=== PATIENT | male | born 1985 | race Caucasian/White ===

== ENCOUNTER → 2018-10-21 15:54 | Outpatient (CLI) | payer BC, SELFPAY ==
--- NOTE | 2018-10-21 16:52 | DI.MRI.S_ITS ---
PROCEDURE: MR HEAD/BRAIN WO/W CON INDICATIONS: NEAR SYNCOPE NAUSEA AND VOMITING TECHNIQUE: Noncontrast axial T1 spin echo, axial T2 fast spin echo, sagittal and axial FLAIR, coronal T2 fast spin echo, axial gradient echo, axial diffusion and ADC through the brain. After the administration of contrast, axial and coronal 3D VIBE or T1 spin echo with fat saturation through the brain. COMPARISON: None. FINDINGS: Image quality: Excellent. CSF Spaces: Basal cisterns are patent. No extra-axial fluid collections. Ventricles are normal in size and shape. Brain: No midline shift. No intracranial bleeds or masses. No abnormal intracranial enhancement. The brainstem appears normal. Diffusion-weighted images demonstrate no acute ischemic insults. No chronic ischemic insults. Normal intravascular flow voids are present. Skull and face: Calvarial marrow is normal in signal. Orbits appear normal. Sinuses: Sinuses and mastoids appear clear. IMPRESSION: No imaging explanation is found for this patient's presenting symptoms. No masses or abnormal enhancement can be seen. No hydrocephalus. No intracranial hemorrhage. Dictated by: Corbin Polanco M.D. on 10/21/2018 at 16:12 Approved by: Corbin Polanco M.D. on 10/21/2018 at 16:12
== END ==
PROVIDERS: PCP Nurse Practitioner Family; Visit Provider Nurse Practitioner Family
DX: R55 Syncope and collapse (principal); R11.2 Nausea with vomiting, unspecified
CPT/HCPCS: 70553; A9579

== ENCOUNTER 2019-02-22 21:43 | Emergency (ER) | payer BC, SELFPAY ==
[2019-02-22 21:50] VITALS: BP 159/116; PULSE 96; RESP 18; TEMP 36.4; O2SAT 100; BMI 35.4
--- NOTE | 2019-02-22 22:03 | DI.RAD.S_ITS ---
PROCEDURE: XR SHOULDER RT MIN 2V INDICATIONS: Fell on R shouler doing a flip TECHNIQUE: 2 views of the shoulder were acquired. COMPARISON: None. FINDINGS: Bones: No fractures or dislocations. No suspicious bony lesions. Visualized ribs appear intact. Soft tissues: No suspicious soft tissue calcifications. IMPRESSION: No acute shoulder fracture or dislocation. Dictated by: Antonino Penaloza M.D. on 02/22/2019 at 22:17 Approved by: Antonino Penaloza M.D. on 02/22/2019 at 22:18
--- NOTE | 2019-02-22 23:03 | ED.UPPEXIN ---
HPI - Extremity Injury (Upper) General Chief Complaint: Extremity Injury, Upper Stated Complaint: right arm injury Time Seen by Provider: 02/22/19 21:56 Source: patient Mode of arrival: ambulatory Limitations: no limitations History of Present Illness HPI narrative: Patient comes to the emergency department after injuring his shoulder this evening while playing with his stepson. Patient states he fell to the ground and rolled, and felt a sharp pop in his right shoulder. He states he is having pain over the top of his shoulder, and indicates that it hurts most over the AC joint area. Patient states that as long as he holds still it is not too bad, but that certain movements create a sharp pain in that area. Patient denies any other complaints at this time. He denies any spinal or rib pain. No chest pain or shortness of breath. No abdominal pain. Patient did not hit his head or lose consciousness. Patient rates his pain an 8/10. Related Data Allergies Allergy/AdvReac Type Severity Reaction Status Date / Time No Known Drug Allergies Allergy Verified 02/22/19 23:34 Review of Systems Constitutional Denies chills, Denies fever(s), Denies lethargy and Denies weakness Eyes Denies change in vision, Denies eye discharge, Denies irritation and Denies loss of vision ENT Ears, Nose, Mouth, and Throat: Denies change in voice, Denies neck pain and Denies sore throat Cardiovascular Denies chest pain, Denies irregular heart rhythm, Denies lightheadedness, Denies palpitations, Denies dyspnea, Denies dyspnea on exertion and Denies orthopnea Respiratory Denies cough, Denies dyspnea, Denies dyspnea on exertion and Denies wheezing Gastrointestinal Gastrointestinal: Denies abdominal pain, Denies change in bowel habits, Denies diarrhea, Denies nausea and Denies vomiting Genitourinary Denies hematuria, Denies flank pain, Denies urinary incontinence and Denies urinary urgency Musculoskeletal Denies neck pain Comments: Right shoulder pain Integumentary/Breasts Denies pruritus, Denies erythema, Denies rash and Denies wounds Neurologic Denies confusion, Denies loss of vision and Denies weakness Psychiatric Denies anxiety, Denies confusion, Denies depression, Denies homicidal ideation and Denies suicidal ideation Endocrine Denies palpitations Hematologic/Lymphatic Denies easy bruising Allergic/Immunologic Denies wheezing ON LICENSE OF [facility] Medical History Healthy adult (Acute) Surgical History No pertinent past surgical history (Acute) Social History Smoking Status: Current every day smoker Social History Smoking Status: Current every day smoker Exam Initial Vital Signs Initial Vital Signs: Vital Signs Temperature 97.6 F 02/22/19 21:50 Pulse Rate 96 H 02/22/19 21:50 Respiratory Rate 18 02/22/19 21:50 Blood Pressure 159/116 H 02/22/19 21:50 Pulse Oximetry 100 02/22/19 21:50 Const General: cooperative and well developed Nutritional Appearance: well nourished Orientation: alert, awake, oriented x3 and not confused HENAK Head: normocephalic and atraumatic Ears: external ears normal Nose: external nose normal and No nasal discharge Face and sinus: face symmetric and No dry mucous membranes Mouth: oral mucosae normal and moist mucous membranes Teeth and gingiva: dentition normal Eyes General: appearance normal, both eyes and all related structures Eyelids: eyelids normal Conjunctivae: conjunctivae normal Sclera: sclerae normal Pupils: PERRL EOM: EOM intact bilaterally Neck Neck: normal visual inspection, trachea midline, No lymphadenopathy, No midline deformity and No JVD Lymphatic: No lymphedema Chest Chest: normal inspection of the chest Resp Effort & Inspection: normal respiratory effort, able to speak in complete sentences, no respiratory distress and no use of accessory muscles Auscultation: clear to auscultation bilaterally, no rales, no rhonchi and no wheezes Cardio Rate: regular rate Rhythm: regular rhythm Heart Sounds: no click, no gallops, no murmurs and no rubs Pulses: normal peripheral pulses GI Inspection: obesity Back/Spine/Pelvis Back: No CVA tenderness Cervical Spine: cervical ROM normal and No pain with cervical ROM Thoracic/Lumbar Spine: thoracic and lumbar spine normal to inspection Other: No tenderness or step-off at any level of the spine. Skin General: no rashes or lesions noted, No jaundice and No petechiae Neuro General: alert, oriented x3, gait normal and no focal motor deficits Speech: speech normal Extrem General: full ROM, no clubbing, cyanosis or edema, no pedal edema and no calf tenderness Other: Patient has tenderness and mild prominence of his right AC joint. There is no point tenderness anywhere else about the patient's shoulder joint. The patient is unable to move his shoulder on exam, he states, secondary to pain in the AC joint area. Patient is able to move at the elbow and wrist and fingers in the same extremity. There is no deformity anywhere else and no edema. Psych Appearance: well kempt Mental Status: mental status grossly normal Attitude: cooperative Thought Content: normal and suicidality Judgment: judgment good Course Course Narrative: Patient was worked up with a right shoulder x-ray series, which showed no fractures. There is minimal AC disruption on the x-ray. I felt the patient clinically most likely had a very mild grade 1 tear of his AC ligament. We have discussed timeline for healing, as well as home management of the symptoms and work restrictions. We have discussed the usual indications for return. Patient has been given Toradol and a dose of Vicodin in the emergency department as well as a sling. He has also been given a Vicodin prepack. We have discussed the need for follow-up his primary doctor in 2-3 weeks if symptoms have not begun to improve. Orders Ordered: ED Orders 02/22/19 22:03 XR shoulder RT min 2V Stat Discontinued Medications Hydrocodone Bitart/Acetaminophen ([place] 10/325) 1 tab PO NOW ONE Stop: 02/22/19 22:47 Last Admin: 02/22/19 23:29 Dose: Not Given Hydrocodone Bitart/Acetaminophen (Vicodin Prepack) 1 bottle MISC SEEINSTR ONE Stop: 02/22/19 22:47 Last Admin: 02/22/19 23:27 Dose: 1 bottle Hydrocodone Bitart/Acetaminophen ([place] 5/325) 1 tab PO NOW ONE Stop: 02/22/19 23:30 Last Admin: 02/22/19 23:31 Dose: 1 tab Ketorolac Tromethamine (Toradol) 60 mg IM NOW ONE Stop: 02/22/19 22:47 Last Admin: 02/22/19 23:28 Dose: Not Given Vital Signs - 8 hr 02/22/19 21:50 02/22/19 23:04 Temperature 97.6 F Pulse Rate 96 H 93 H Respiratory Rate 18 18 Blood Pressure 159/116 H Blood Pressure [Left Arm] 160/104 H Pulse Oximetry 100 97 MDM - Extremity Injury (Upper) Medical Records Attestation: I reviewed the patient's medical records. Imaging Data Right shoulder x-ray: Attestation: I personally reviewed and interpreted this imaging study as follows: (Negative) Discharge Plan Departure Patient Disposition: Home Clinical Impression: Acromioclavicular separation, type 1 Qualifiers: Encounter type: initial encounter Laterality: right Qualified Code(s): S43.101A - Unspecified dislocation of right acromioclavicular joint, initial encounter Shoulder sprain Qualifiers: Encounter type: initial encounter Shoulder sprain type: other part of shoulder region Laterality: right Qualified Code(s): S43.491A - Other sprain of right shoulder joint, initial encounter Discharge Date/Time: 02/23/19 00:01 Instructions: DI for Shoulder Sprain, DI for AC Joint Separation Activity Restrictions/Additional Instructions: Your x-ray does not show any broken bones. Your pain and swelling over the AC joint are consistent with a small tear of the ligament that holds the end of your collarbone and the end of your shoulder blade together. This will generally heal well on its own, and you should be able to get back to your usual activities within the next few weeks. If you continue to have trouble without any sign of improvement after that period of time, you should talk to your primary doctor about getting an MRI done. You may use the sling as long as you need to for comfort. Referrals: Janeth Wang ARNP [Primary Care Provider] - Stand Alone Forms: Work Release Note
[2019-02-22 23:04] VITALS: BP 160/104; PULSE 93; RESP 18; O2SAT 97
--- NOTE | 2019-02-22 23:09 | ED_ITS ---
HPI - Extremity Injury (Upper) General Chief Complaint: Extremity Injury, Upper Stated Complaint: right arm injury Time Seen by Provider: 02/22/19 21:56 Source: patient Mode of arrival: ambulatory Limitations: no limitations History of Present Illness HPI narrative: Patient comes to the emergency department after injuring his shoulder this evening while playing with his stepson. Patient states he fell to the ground and rolled, and felt a sharp pop in his right shoulder. He states he is having pain over the top of his shoulder, and indicates that it hurts most over the AC joint area. Patient states that as long as he holds still it is not too bad, but that certain movements create a sharp pain in that area. Patient denies any other complaints at this time. He denies any spinal or rib pain. No chest pain or shortness of breath. No abdominal pain. Patient did not hit his head or lose consciousness. Patient rates his pain an 8/10. Related Data Allergies Allergy/AdvReac Type Severity Reaction Status Date / Time No Known Drug Allergies Allergy Verified 02/22/19 23:34 Review of Systems Constitutional Denies chills, Denies fever(s), Denies lethargy and Denies weakness Eyes Denies change in vision, Denies eye discharge, Denies irritation and Denies loss of vision ENT Ears, Nose, Mouth, and Throat: Denies change in voice, Denies neck pain and Den ies sore throat Cardiovascular Denies chest pain, Denies irregular heart rhythm, Denies lightheadedness, Denies palpitations, Denies dyspnea, Denies dyspnea on exertion and Denies orthopnea Respiratory Denies cough, Denies dyspnea, Denies dyspnea on exertion and Denies wheezing Gastrointestinal Gastrointestinal: Denies abdominal pain, Denies change in bowel habits, Denies diarrhea, Denies nausea and Denies vomiting Genitourinary Denies hematuria, Denies flank pain, Denies urinary incontinence and Denies urinary urgency Musculoskeletal Denies neck pain Comments: Right shoulder pain Integumentary/Breasts Denies pruritus, Denies erythema, Denies rash and Denies wounds Neurologic Denies confusion, Denies loss of vision and Denies weakness Psychiatric Denies anxiety, Denies confusion, Denies depression, Denies homicidal ideation and Denies suicidal ideation Endocrine Denies palpitations Hematologic/Lymphatic Denies easy bruising Allergic/Immunologic Denies wheezing [facility] Medical History Healthy adult (Acute) Surgical History No pertinent past surgical history (Acute) Social History Smoking Status: Current every day smoker Social History Smoking Status: Current every day smoker Exam Initial Vital Signs Initial Vital Signs: Vital Signs Temperature 97.6 F 02/22/19 21:50 Pulse Rate 96 H 02/22/19 21:50 Respiratory Rate 18 02/22/19 21:50 Blood Pressure 159/116 H 02/22/19 21:50 Pulse Oximetry 100 02/22/19 21:50 Const General: cooperative and well developed Nutritional Appearance: well nourished Orientation: alert, awake, oriented x3 and not confused HENMT Head: normocephalic and atraumatic Ears: external ears normal Nose: external nose normal and No nasal discharge Face and sinus: face symmetric and No dry mucous membranes Mouth: oral mucosae normal and moist mucous membranes Teeth and gingiva: dentition normal Eyes General: appearance normal, both eyes and all related structures Eyelids: eyelids normal Conjunctivae: conjunctivae normal Sclera: sclerae normal Pupils: PERRL EOM: EOM intact bilaterally Neck Neck: normal visual inspection, trachea midline, No lymphadenopathy, No midline deformity and No JVD Lymphatic: No lymphedema Chest Chest: normal inspection of the chest Resp Effort & Inspection: normal respiratory effort, able to speak in complete sentences, no respiratory distress and no use of accessory muscles Auscultation: clear to auscultation bilaterally, no rales, no rhonchi and no wheezes Cardio Rate: regular rate Rhythm: regular rhythm Heart Sounds: no click, no gallops, no murmurs and no rubs Pulses: normal peripheral pulses GI Inspection: obesity Back/Spine/Pelvis Back: No CVA tenderness Cervical Spine: cervical ROM normal and No pain with cervical ROM Thoracic/Lumbar Spine: thoracic and lumbar spine normal to inspection Other: No tenderness or step-off at any level of the spine. Skin General: no rashes or lesions noted, No jaundice and No petechiae Neuro General: alert, oriented x3, gait normal and no focal motor deficits Speech: speech normal Extrem General: full ROM, no clubbing, cyanosis or edema, no pedal edema and no calf tenderness Other: Patient has tenderness and mild prominence of his right AC joint. There is no point tenderness anywhere else about the patient's shoulder joint. The patient is unable to move his shoulder on exam, he states, secondary to pain in the AC joint area. Patient is able to move at the elbow and wrist and fingers in the same extremity. There is no deformity anywhere else and no edema. Psych Appearance: well kempt Mental Status: mental status grossly normal Attitude: cooperative Thought Content: normal and suicidality Judgment: judgment good Course Course Narrative: Patient was worked up with a right shoulder x-ray series, which showed no fractures. There is minimal AC disruption on the x-ray. I felt the patient clinically most likely had a very mild grade 1 tear of his AC ligament. We have discussed timeline for healing, as well as home management of the symptoms and work restrictions. We have discussed the usual indications for return. Patient has been given Toradol and a dose of Vicodin in the emergency department as well as a sling. He has also been given a Vicodin prepack. We have discussed the need for follow-up his primary doctor in 2-3 weeks if symptoms have not begun to improve. Orders Ordered: ED Orders 02/22/19 22:03 XR shoulder RT min 2V Stat Discontinued Medications Hydrocodone Bitart/Acetaminophen ([place] 10/325) 1 tab PO NOW ONE Stop: 02/22/19 22:47 Last Admin: 02/22/19 23:29 Dose: Not Given Hydrocodone Bitart/Acetaminophen (Vicodin Prepack) 1 bottle MISC SEEINSTR ONE Stop: 02/22/19 22:47 Last Admin: 02/22/19 23:27 Dose: 1 bottle Hydrocodone Bitart/Acetaminophen ([place] 5/325) 1 tab PO NOW ONE Stop: 02/22/19 23:30 Last Admin: 02/22/19 23:31 Dose: 1 tab Ketorolac Tromethamine (Toradol) 60 mg IM NOW ONE Stop: 02/22/19 22:47 Last Admin: 02/22/19 23:28 Dose: Not Given Vital Signs - 8 hr 02/22/19 21:50 02/22/19 23:04 Temperature 97.6 F Pulse Rate 96 H 93 H Respiratory Rate 18 18 Blood Pressure 159/116 H Blood Pressure [Left Arm] 160/104 H Pulse Oximetry 100 97 MDM - Extremity Injury (Upper) Medical Records Attestation: I reviewed the patient's medical records. Imaging Data Right shoulder x-ray: Attestation: I personally reviewed and interpreted this imaging study as follows: (Negative) Discharge Plan Departure Patient Disposition: Home Clinical Impression: Acromioclavicular separation, type 1 Qualifiers: Encounter type: initial encounter Laterality: right Qualified Code(s): S43.101A - Unspecified dislocation of right acromioclavicular joint, initial encounter Shoulder sprain Qualifiers: Encounter type: initial encounter Shoulder sprain type: other part of shoulder region Laterality: right Qualified Code(s): S43.491A - Other sprain of right shoulder joint, initial encounter Discharge Date/Time: 02/23/19 00:01 Instructions: DI for Shoulder Sprain, DI for AC Joint Separation Activity Restrictions/Additional Instructions: Your x-ray does not show any broken bones. Your pain and swelling over the AC j oint are consistent with a small tear of the ligament that holds the end of your collarbone and the end of your shoulder blade together. This will generally heal well on its own, and you should be able to get back to your usual activities within the next few weeks. If you continue to have trouble without any sign of improvement after that period of time, you should talk to your primary doctor about getting an MRI done. You may use the sling as long as you need to for comfort. Referrals: Janeth Wang ARNP [Primary Care Provider] - Stand Alone Forms: Work Release Note
[2019-02-22] MEDS: HYDROCODONE/ACET 5/325 PREPACK 1 BOTTLE MISC (23:27)
[2019-02-22] MEDS: HYDROCODONE/ACET 5/325 TABLET 1 TAB PO (23:31)
== END 2019-02-23 00:01 | disposition home or self-care (01) ==
PROVIDERS: Emergency Provider Emergency Medicine; PCP Nurse Practitioner Family
DX: S43.491A Other sprain of right shoulder joint, initial encounter (principal)
CPT/HCPCS: 73030; 99282; 99283; J1885

== ENCOUNTER → 2021-06-01 09:52 | Outpatient (CLI) | payer OTHER, SELFPAY ==
[2021-06-01 11:03] LABS: Add Manual Diff / Slide Review NO; Basophils Absolute Auto 0 /uL (0-100); Basophils Percent Auto 0.4 % (0-2); Eosinophils Absolute Auto 100 /uL (0-450); Eosinophils Percent Auto 0.8 % (2-4); Hematocrit 44.7 % (41-53); Hemoglobin 15.4 g/dL (13.5-17.5); Lymphocytes Absolute Auto 2500 /uL (1100-4500); Lymphocytes Percent Auto 41.3 % (25-40); Mean Corpuscular HGB Conc 34.5 % (30-36); Mean Corpuscular Hemoglobin 33.4 PG (26-34); Mean Corpuscular Volume 96.9 fL (80-100); Monocytes Absolute Auto 500 /uL (0-900); Monocytes Percent Auto 8.9 % (3-14); Neutrophils Absolute Auto 2900 /uL (1500-7000); Neutrophils Percent Auto 48.6 % (50-75); Platelet Count 151 X10^3/uL (150-400); Red Blood Cell Count 4.61 X10^6/uL (4.5-5.9); Red Cell Distribution Width 11.8 % (11.6-14.8); White Blood Cell Count 6.1 X10^3/uL (4.5-11.0)
[2021-06-01 11:13] LABS: Hemoglobin A1C% w Est Avg Glu 4.6 % (4.0-6.0)
[2021-06-01 11:27] LABS: Alanine Aminotransferase 126 IU/L (<50); Albumin 4.7 g/dL (3.5-5.0); Albumin Globulin Ratio 1.4 (1.0-2.8); Alkaline Phosphatase 105 U/L (38-126); Aspartate Aminotransferase 72 IU/L (17-59); BUN Creatinine Ratio 32.9 (6-22); Bilirubin Total 0.7 mg/dL (0.2-1.3); Blood Urea Nitrogen 25 mg/dL (9-20); Calcium 9.6 mg/dL (8.4-10.2); Carbon Dioxide 23 mmol/L (22-32); Chloride 105 mmol/L (98-107); Cholesterol 207 mg/dL (140-199); Estimated Glomerular Filt Rate > 60.0 mL/min (>60); Globulin 3.4 g/dL (1.7-4.1); Glucose 108 mg/dL (70-100); HDL Cholesterol 63 mg/dL (40-60); HEMOLYSIS < 15 (0-50); LDL Cholesterol Calculated 99 mg/dL (<100); Potassium 4.2 mmol/L (3.4-5.1); Sodium 138 mmol/L (137-145); Total Protein 8.1 g/dL (6.3-8.2); Triglycerides 227 mg/dL (35-150)
[2021-06-01 11:48] LABS: Creatinine Urine Random 226.2 mg/dL
[2021-06-01 11:52] LABS: Microalbumi Creatinin Ratio Ur 25.6 ug/mg CR (<30); Microalbumin Urine Random 5.8 mg/dL (0-1.6)
[2021-06-01 11:56] LABS: TSH w/ Reflex to FT4 3.67 uIU/mL (0.47-4.68)
== END ==
PROVIDERS: PCP Family Medicine; Referring Provider Family Medicine; Visit Provider Family Medicine
DX: A60.00 Herpesviral infection of urogenital system, unspecified (principal); I10 Essential (primary) hypertension
CPT/HCPCS: 36415; 80053; 80061; 82043; 82570; 83036; 84443; 85025